=== PATIENT | male | born 1990 | race Caucasian/White ===

== ENCOUNTER 2021-04-25 13:30 | Emergency (ER) | payer OTHER, SELFPAY ==
--- NOTE | 2021-04-25 13:34 | ED.UPPEXIN ---
HPI - Extremity Injury (Upper) General Chief Complaint: Extremity Problem,Nontraumatic Stated Complaint: hand weakness Time Seen by Provider: 04/25/21 13:34 Source: patient and RN notes reviewed Mode of arrival: ambulatory Limitations: no limitations History of Present Illness HPI narrative: 30yo male presents to the [facility] with C/O right hand numbness. States that it started about 1 week ago. Types a lot. Full ROM and strong medical record administrator noted bilateral. Denies any med or surg issues. Related Data Allergies Allergy/AdvReac Type Severity Reaction Status Date / Time diphenhydramine Allergy Unknown Unknown Verified 11/07/19 13:31 Review of Systems Review of Systems: All systems reviewed & are unremarkable except as noted in HPI and below Constitutional: Constitutional: Reports no additional constitutional complaints Eyes: Eyes: Reports no additional eye complaints ENT: Reports system reviewed and no additional complaints, except as documented Cardiovascular: Cardiovascular: Reports no additional cardiovascular complaints and Denies chest pain Respiratory: Respiratory: Reports no additional respiratory complaints, Denies cough and Denies dyspnea Musculoskeletal: Musculoskeletal: Reports no additional musculoskeletal complaints, Denies back pain, Denies myalgias, Denies arthralgias, Denies joint swelling and Denies muscle cramps Integumentary/Breasts: Skin/Breast: Reports system reviewed and no additional complaints, except as docu, Denies erythema and Denies rash Neurologic: Reports as per HPI, Denies confusion, Denies dizziness, Denies headache(s), Denies focal weakness, Reports numbness (fingers) and Denies weakness Psychiatric: Psychiatric: Reports no additional psychiatric complaints PMFSH Social History Social History Gender identity (if verbalized by the patient): Male Comments At the time of my signature, I reviewed and agree with the nursing past medical, surgical, social, and family history. There is no relevant family history pertinent to the patient complaint. Exam Const: General: healthy appearing, no acute distress and alert Nutritional Appearance: well nourished Orientation/consciousness: patient oriented x3 Limitations: no limitations HENMT: Head: normal to inspection Neck: Neck: normal visual inspection, no lymphadenopathy and no meningeal signs Chest: Chest palpation & inspection: normal inspection of the chest Resp: Effort & Inspection: normal respiratory effort and no use of accessory muscles Auscultation: clear to auscultation bilaterally, no crackles, no rales, no rhonchi and no wheezes Cardio: Rate: regular rate Rhythm: regular rhythm Skin: General skin exam: normal color Rashes: no rashes Wounds: no wounds Neuro: General: patient oriented x3, moves all extremities, no meningeal signs and no focal motor deficits Speech: normal speech Gait exam (Neuro): Normal gait present Extrem: Right upper extremity: wrist normal ROM, normal vascular exam, radial pulse present, ulnar pulse present and Tinel's negative; no tenderness, no swelling, no unusual warmth, no abrasions and Phalen's positive (Positive ) Left upper extremity: normal to inspection, full ROM, normal capillary refill and wrist normal ROM, normal vascular exam, radial pulse present and Tinel's negative; no tenderness, no swelling, no unusual warmth, no lacerations and no ecchymosis Psych: Appearance: grossly normal and well kempt Mental Status: mental status grossly normal Affect: normal affect Attitude: cooperative Thought content: Yes Normal thought content present Course Vital Signs Vital signs: Vital Signs Temperature 98.4 F 04/25/21 13:39 Pulse Rate 68 04/25/21 13:39 Respiratory Rate 18 04/25/21 13:39 Blood Pressure 134/88 04/25/21 13:39 Pulse Oximetry 100 04/25/21 13:39 Temperature 98.4 F 04/25/21 13:39 Pulse Rate 68 04/25/21 13:39 Respiratory
[2021-04-25 13:39] VITALS: BP 134/88; PULSE 68; RESP 18; TEMP 36.9; O2SAT 100
== END 2021-04-25 13:49 | disposition home or self-care (01) ==
PROVIDERS: Emergency Provider Nurse Practitioner; PCP Family Medicine
DX: G56.03 Carpal tunnel syndrome, bilateral upper limbs (principal)
CPT/HCPCS: 99213; G0463

== ENCOUNTER → 2021-04-28 10:56 | Outpatient (CLI) | payer OTHER, SELFPAY ==
--- NOTE | ~2021-04-28 | XR_ITS ---
EXAMINATION: XR hand RT min 3V DATE: 04/28/2021 11:08 INDICATION: Right hand pain. TECHNIQUE: 3 views of right hand were obtained. COMPARISON: None. FINDINGS: Bone alignment is normal. No fracture. Joint spaces are well maintained. IMPRESSION: 1. Normal right hand. Reviewed, dictated and finalized at location A. IMPRESSION: 1. Normal right hand.
--- NOTE | ~2021-04-28 | XR_ITS ---
EXAMINATION: XR hand LT min 3V DATE: 04/28/2021 11:08 INDICATION: Left hand pain. TECHNIQUE: 3 views of left hand were obtained. COMPARISON: None. FINDINGS: Bone alignment is normal. No fracture. There is mild osteoarthritis of fourth and fifth pro ximal interphalangeal joints. IMPRESSION: 1. Mild polyarticular osteoarthritis. Reviewed, dictated and finalized at location A.
== END ==
PROVIDERS: PCP Family Medicine; Visit Provider Physician Assistant
DX: M19.042 Primary osteoarthritis, left hand (principal); M79.641 Pain in right hand
CPT/HCPCS: 73130

== ENCOUNTER 2022-03-15 09:06 | Outpatient (CLI) | payer OTHER, SELFPAY ==
--- NOTE | 2022-03-15 11:00 | NEURO_ITS ---
Impression: # Complains of pain in hands. # No Carpal Tunnel Syndrome or ulnar neuropathy. # Normal nerve conduction study. # Normal needle/EMG exam. Nerve Conduction Studies Anti Sensory Summary Table Stim Site NR Peak (ms) P-T Amp (?V) Site1 Site2 Delta-P (ms) Dist (cm) Trever (m/s) Left Median Anti Sensory (2-3nd Digit) Wrist 2.6 79.2 Wrist 2-3nd Digit 2.6 14.0 54 Wrist 2.7 84.9 Wrist 2-3nd Digit 2.6 14.0 54 Right Median Anti Sensory (2-3nd Digit) Wrist 2.7 85.1 Wrist 2-3nd Digit 2.7 14.0 52 Wrist 2.8 78.0 Wrist 2-3nd Digit 2.7 14.0 52 Left Radial Anti Sensory (Base 1st Digit) Wrist 1.8 36.7 Wrist Base 1st Digit 1.8 0.0 Right Radial Anti Sensory (Base 1st Digit) Wrist 2.0 26.5 Wrist Base 1st Digit 2.0 0.0 Left Ulnar Anti Sensory (5th Digit) Wrist 2.5 64.2 Wrist 5th Digit 2.5 14.0 56 Right Ulnar Anti Sensory (5th Digit) Wrist 2.5 61.7 Wrist 5th Digit 2.5 14.0 56 Motor Summary Table Stim Site NR Onset (ms) O-P Amp (mV) Site1 Site2 Delta-0 (ms) Dist (cm) Trever (m/s) Left Median Motor (Abd Poll Brev) Wrist 3.0 7.8 Elbow Wrist 5.2 30.0 58 Elbow 8.2 4.2 Right Median Motor (Abd Poll Brev) Wrist 3.3 3.8 Elbow Wrist 4.4 28.0 64 Elbow 7.7 1.8 Left Ulnar Motor (Abd Dig Minimi) Wrist 2.2 6.4 A Elbow Wrist 4.7 29.0 62 A Elbow 6.9 6.0 Right Ulnar Motor (Abd Dig Minimi) Wrist 2.7 7.9 A Elbow Wrist 4.9 31.0 63 A Elbow 7.6 6.7 F Wave Studies NR F-Lat (ms) L-R F-Lat (ms) Left Median (Mrkrs) (Abd Poll Brev) 28.96 0.39 Right Median (Mrkrs) (Abd Poll Brev) 28.57 0.39 Left Ulnar (Mrkrs) (Abd Dig Min) 27.58 0.43 Right Ulnar (Mrkrs) (Abd Dig Min) 28.01 0.43 EMG Side Muscle Nerve Root Ins Act Fibs Amp Dur Recrt Comment Right 1stDorInt Ulnar C8-T1 Nml Nml Nml Nml Nml Right Ext Indicis Radial (Post Int) C7-8 Nml Nml Nml Nml Nml Right Ext Digitorum Radial (Post Int) C7-8 Nml Nml Nml Nml Nml Right BrachioRad Radial C5-6 Nml Nml Nml Nml Nml Right PronatorTeres Median C6-7 Nml Nml Nml Nml Nml Right Abd Poll Brev Median C8-T1 Nml Nml Nml Nml Nml Left 1stDorInt Ulnar C8-T1 Nml Nml Nml Nml Nml Left Ext Indicis Radial (Post Int) C7-8 Nml Nml Nml Nml Nml Left Ext Digitorum Radial (Post Int) C7-8 Nml Nml Nml Nml Nml Left BrachioRad Radial C5-6 Nml Nml Nml Nml Nml Left PronatorTeres Median C6-7 Nml Nml Nml Nml Nml Left Abd Poll Brev Median C8-T1 Nml Nml Nml Nml Nml MTDD
== END 2022-03-15 09:07 | disposition home or self-care (01) ==
PROVIDERS: PCP Family Medicine; Visit Provider Family Medicine
DX: M79.644 Pain in right finger(s) (principal); M79.645 Pain in left finger(s)
CPT/HCPCS: 95886; 95911